=== PATIENT | female | born 1980 | race Caucasian/White ===

== ENCOUNTER 2019-10-11 06:46 | Day surgery (SDC) | payer OTHER ==
[~2019-10-11] VITALS: Ht 177.8 cm; Wt 88.5 kg
[~2019-10-11 06:46] MED LIST: CHLO25B PO; ETAN50I; PREN-16 PO; Prinivil10 MG PO
[2019-10-11] MEDS ORDERED: LOSA25 PO (08:02)
[2019-10-11] MEDS ORDERED: FLUC150A PO (08:03)
[2019-10-11] MEDS ORDERED: PSEU120ER (08:03)
[2019-10-11] MEDS ORDERED: ALEVE220 MG PO (08:04)
[2019-10-11] MEDS ORDERED: Prednisone10 MG PO (08:04)
--- NOTE | 2019-10-11 12:24 | NUR ---
10/11/19 1223 Bettie Jaffe V PT RESTING IN CHAIR, CALL LIGHT WITHIN REACH, VSS. PT REPORTS PAIN AND NAUSEA FOR WHICH SHE HAS BEEN MEDICATED. PT HOLDING ICE PACK TO NOSE TO HELP WITH PAIN MANAGEMENT.
== END 2019-10-11 13:30 | disposition home or self-care (01) ==
LOC: ORSCSDS 06:46
PROVIDERS: Otolaryngology
PROC: 8E09XBZ Computer Assisted Procedure of Head and Neck Region (ICD-10-PCS; principal; 2019-10-11 08:00)
PROC: 09TL0ZZ Resection of Nasal Turbinate, Open Approach (ICD-10-PCS; principal; 2019-10-11 08:00)
PROC: 09TL4ZZ Resection of Nasal Turbinate, Percutaneous Endoscopic Approach (ICD-10-PCS; principal; 2019-10-11 08:00)
PROC: 09DU4ZZ Extraction of Right Ethmoid Sinus, Percutaneous Endoscopic Approach (ICD-10-PCS; principal; 2019-10-11 08:00)
PROC: 09BM0ZZ Excision of Nasal Septum, Open Approach (ICD-10-PCS; principal; 2019-10-11 08:00)
PROC: 09DV4ZZ Extraction of Left Ethmoid Sinus, Percutaneous Endoscopic Approach (ICD-10-PCS; principal; 2019-10-11 08:00)
DX: J32.4 Chronic pansinusitis (principal); J34.3 Hypertrophy of nasal turbinates; J34.89 Other specified disorders of nose and nasal sinuses; J34.2 Deviated nasal septum; I10 Essential (primary) hypertension; Z79.899 Other long term (current) drug therapy
CPT/HCPCS: 88305; 88311; C2625; J1100; J2250; J2370; J2405; J2704; J2710; J3010; J7040; J7120

== ENCOUNTER 2025-01-27 07:58 | Day surgery (SDC) | payer OTHER ==
[~2025-01-27] VITALS: Ht 177.8 cm; Wt 90.2 kg
[~2025-01-27 07:58] MED LIST changes: +ALEVE220 MG PO; +Bupivacaine 0.5% W/EPI 1:200000 SDV 30 ML Vial ONE; +ESCI10 PO; +FLUC150A PO; +HUMIRA40 MG/0.2 INJ; +HYDCHL25 PO; +LOSA25 PO; +Lisinopril2.5 MG; +NIFE30ER PO; +PSEU120ER; +Prednisone10 MG PO; +TRAM50; +TRAM50 PO
[2025-01-27] MEDS ORDERED: CeFAZolin Sodium 2,000 MG VIAL ONE (08:03)
[2025-01-27] MEDS ORDERED: Midazolam HCl 1MG / ML 2ML Vial ONE (09:56)
[2025-01-27] MEDS ORDERED: Ondansetron HCl 2 MG / ML 2ML Vial ONE ×2 (09:56→10:39)
[2025-01-27] MEDS ORDERED: Metoclopramide HCl 5MG / ML 2ML Vial ONE (09:56)
[2025-01-27] MEDS ORDERED: FentaNYL Citrate 50 MCG/ML 2 ML Injection ONE (10:39)
--- NOTE | 2025-01-27 11:12 | NUR ---
01/27/25 1112 Yamilet Dugan BROUGHT TO BEDSIDE. PT IN RECLINER, LEFT FOOT ELEVATED ON PILLOW, ICE PACK APPLIED, PT TOLERATING ORAL FLUIDS WELL. WARM BLANKET APPLIED. VSS.
[2025-01-27] MEDS ORDERED: HYDROcodone 5-APAP 325 TAB ONE (11:27)
[2025-01-27 11:29] VITALS: BP 142/83
--- NOTE | 2025-01-27 11:59 | NUR ---
01/27/25 1159 Yamilet Dugan REPORT RECEIVED FROM JANUARY AND RN. PT ASLEEP UPON ARRIVAL WITH DRY, NONPRODUCTIVE COUGH. PT AROUSABLE TO VOICE. PT WOKE UP RESTLESS AND EMOTIONAL. RN X2 AT BEDSIDE. PT REPORTS HER THROAT IS SORE AND HURTING. PT REPORTS NAUSEA. PT REASSURED BY RN. ANTIEMETIC AND PAIN MEDICATION GIVEN. LUNG SOUNDS CLEAR IN ALL LOBES, ICE CHIPS GIVEN FOR THROAT PAIN. PT REPORTS ICE CHIPS HELPED. PT CALM AND COOPERATIVE PRIOR TO LEAVING PACU. PT REPORTS NAUSEA HAS RESOLVED AND THROAT PAIN IS TOLERABLE.
== END 2025-01-27 11:56 | disposition home or self-care (01) ==
LOC: ORSCSDS 07:58
PROVIDERS: Podiatrist Foot & Ankle Surgery
PROC: 0JBR0ZX Excision of Left Foot Subcutaneous Tissue and Fascia, Open Approach, Diagnostic (ICD-10-PCS; principal; 2025-01-27 09:15)
DX: M06.372 Rheumatoid nodule, left ankle and foot (principal); I10 Essential (primary) hypertension; F41.9 Anxiety disorder, unspecified; E66.9 Obesity, unspecified; Z68.28 Body mass index [BMI] 28.0-28.9, adult; Z79.899 Other long term (current) drug therapy
CPT/HCPCS: 88304; A6253; A9270; J0690; J2250; J2405; J2704; J2765; J3010; J7120